=== PATIENT | female | born 1985 | race Two or more races ===

== ENCOUNTER 2023-03-17 19:13 | Emergency (ER) | payer OTHER ==
[~2023-03-17] VITALS: Ht 160 cm; Wt 108.9 kg
[2023-03-17] MEDS ORDERED: PRENA1 CHEW TA1.4 MG PO (20:16)
[2023-03-18] MEDS ORDERED: ZOFRAN8 MG PO (00:10)
[2023-03-18] MEDS ORDERED: PEPCID AC20 MG PO (00:10)
[2023-03-18] MEDS ORDERED: DUI500 PO (00:10)
== END 2023-03-18 00:22 | disposition home or self-care (01) ==
LOC: ER 19:13
DX: O23.41 Unspecified infection of urinary tract in pregnancy, first trimester (principal); Z3A.12 12 weeks gestation of pregnancy; N39.0 Urinary tract infection, site not specified; K52.89 Other specified noninfective gastroenteritis and colitis; Z91.013 Allergy to seafood; Z20.822 Contact with and (suspected) exposure to COVID-19

== ENCOUNTER 2023-03-20 17:45 | Emergency (ER) | payer OTHER ==
[~2023-03-20] VITALS: Ht 160 cm; Wt 107.5 kg
[~2023-03-20 17:45] MED LIST: DUI500 PO; PEPCID AC20 MG PO; PRENA1 CHEW TA1.4 MG PO; ZOFRAN8 MG PO
== END 2023-03-21 03:07 ==
LOC: ER 17:45
DX: O23.41 Unspecified infection of urinary tract in pregnancy, first trimester (principal); N39.0 Urinary tract infection, site not specified; R30.0 Dysuria; Z3A.12 12 weeks gestation of pregnancy; Z91.013 Allergy to seafood

== ENCOUNTER 2023-03-25 15:43 | Emergency (ER) | payer OTHER ==
[~2023-03-25] VITALS: Ht 160 cm; Wt 107.5 kg
== END 2023-03-26 10:12 | disposition home or self-care (01) ==
LOC: ER 15:43
DX: O99.891 Other specified diseases and conditions complicating pregnancy (principal); Z3A.12 12 weeks gestation of pregnancy; Z91.013 Allergy to seafood; Z20.822 Contact with and (suspected) exposure to COVID-19; K80.20 Calculus of gallbladder without cholecystitis without obstruction; N20.0 Calculus of kidney

== ENCOUNTER 2023-04-14 08:30 | Outpatient (CLI) | payer OTHER | END 2023-04-14 09:58 | disposition home or self-care (01) | LOC: PRENATAL 08:30 | PROVIDERS: ATTEND Obstetrics & Gynecology Maternal & Fetal Medicine | DX: O26.849 Uterine size-date discrepancy, unspecified trimester (principal); O09.529 Supervision of elderly multigravida, unspecified trimester; O34.219 Maternal care for unspecified type scar from previous cesarean delivery; O09.219 Supervision of pregnancy with history of pre-term labor, unspecified trimester; Z3A.15 15 weeks gestation of pregnancy ==

== ENCOUNTER 2023-07-18 08:57 | Outpatient (CLI) | payer OTHER | END 2023-07-18 09:02 | disposition home or self-care (01) | LOC: PRENATAL 08:57 | PROVIDERS: ATTEND Obstetrics & Gynecology Maternal & Fetal Medicine | DX: O26.849 Uterine size-date discrepancy, unspecified trimester (principal); O34.219 Maternal care for unspecified type scar from previous cesarean delivery; O99.210 Obesity complicating pregnancy, unspecified trimester; O09.529 Supervision of elderly multigravida, unspecified trimester; Z3A.29 29 weeks gestation of pregnancy ==

== ENCOUNTER 2023-08-26 13:43 | Outpatient (CLI) | payer OTHER | END 2023-08-26 13:45 | disposition home or self-care (01) | LOC: PRENATAL 13:43 | PROVIDERS: ATTEND Obstetrics & Gynecology Maternal & Fetal Medicine | DX: O26.849 Uterine size-date discrepancy, unspecified trimester (principal); O09.529 Supervision of elderly multigravida, unspecified trimester; O34.219 Maternal care for unspecified type scar from previous cesarean delivery; O09.219 Supervision of pregnancy with history of pre-term labor, unspecified trimester ==

== ENCOUNTER 2023-09-14 04:17 | Inpatient (IN) | payer OTHER ==
[~2023-09-14] VITALS: Ht 160 cm; Wt 113.4 kg
[2023-09-14] MEDS ORDERED: CHILDREN'S ASPI81 MG PO (04:25)
[2023-09-14] MEDS ORDERED: NEXIUM2.5 MG (04:26)
[2023-09-14 08:33] LABS: INR < 0.93; PARTIAL THROMBOPLASTIN TIME 24.9 SECONDS (22.0-34.0); PROTHROMBIN TIME 9.6 SECONDS (9.0-11.5)
[2023-09-14 08:46] LABS: URINE APPEARANCE Clear; URINE BILIRRUBIN Small (NEGATIVE); URINE BLOOD Negative; URINE COLOR Dark Yellow; URINE GLUCOSE Negative (NEGATIVE); URINE LEUKOCYTE Small; URINE NITRATE Negative; URINE PROTEIN Trace (NEGATIVE)
[2023-09-14 08:49] LABS: URINE EPITHELIAL CELLS 47.9 uL (0.0-38.8); URINE RBC 14.9 uL (0.0-20.8); URINE WBC 35.8 uL (0.0-23.2)
[2023-09-14 08:53] LABS: HEMATOCRIT 36.2 % (36.0-45.00); HEMOGLOBIN 12.4 g/dL (12.0-15.00); MEAN CELL VOLUME 88.5 fL (80.00-100.00); MEAN CORPUSCULAR HEMOGLOBIN 30.4 pg (27.00-32.0); MEAN CORPUSCULAR HGB CONC 34.4 g/dl (32.0-36.0); PLATELET COUNT 221 K/uL (150-450); RED BLOOD COUNT 4.09 M/uL (4.00-6.00); RED CELL DISTRIBUTION WIDTH 13.6 % (11.5-14.5)
== END 2023-09-15 15:25 | disposition home or self-care (01) | DRG 833 ==
LOC: LDR 04:17
PROVIDERS: Obstetrics & Gynecology; ADMIT Obstetrics & Gynecology; ATTEND Obstetrics & Gynecology
PROC: 4A1HXCZ Monitoring of Products of Conception, Cardiac Rate, External Approach (ICD-10-PCS; principal; 2023-09-14)
DX: O26.893 Other specified pregnancy related conditions, third trimester (principal); R10.13 Epigastric pain; Z3A.37 37 weeks gestation of pregnancy; Z20.822 Contact with and (suspected) exposure to COVID-19

== ENCOUNTER 2023-09-19 07:23 | Inpatient (IN) | payer OTHER ==
[~2023-09-19] VITALS: Ht 160 cm; Wt 3.2 kg
[~2023-09-19 07:23] MED LIST changes: +CHILDREN'S ASPI81 MG PO; +NEXIUM2.5 MG
[2023-09-19] MEDS ORDERED: ASA81 MG PO (07:55)
[2023-09-19 08:28] LABS: HEMATOCRIT 35.4 % (36.0-45.00); MEAN CELL VOLUME 86.6 fL (80.00-100.00); MEAN CORPUSCULAR HEMOGLOBIN 29.4 pg (27.00-32.0); MEAN CORPUSCULAR HGB CONC 33.9 g/dl (32.0-36.0); PH,URINE 5.5 (5.0-8.0); PLATELET COUNT 212 K/uL (150-450); RED BLOOD COUNT 4.09 M/uL (4.00-6.00); RED CELL DISTRIBUTION WIDTH 13.8 % (11.5-14.5); URINE APPEARANCE Turbid; URINE BILIRRUBIN Small (NEGATIVE); URINE BLOOD NHT; URINE COLOR Dark Yellow; URINE GLUCOSE Negative (NEGATIVE); URINE LEUKOCYTE Moderate; URINE NITRATE Negative; URINE PROTEIN 30 (NEGATIVE)
[2023-09-19 08:29] LABS: URINE EPITHELIAL CELLS 103.5 uL (0.0-38.8); URINE RBC 6.8 uL (0.0-20.8); URINE WBC 1692.4 uL (0.0-23.2)
[2023-09-19 08:44] LABS: URINE BACTERIA > 9821.5 uL (0.0-1933)
[2023-09-19 09:04] LABS: INR < 0.93; PARTIAL THROMBOPLASTIN TIME 25.6 SECONDS (22.0-34.0); PROTHROMBIN TIME 9.8 SECONDS (9.0-11.5)
[2023-09-19 09:08] LABS: ALBUMIN 2.7 gm/dL (3.4-5.0); BILIRUBIN TOTAL 0.5 mg/dL (0.3-1.2); CALCIUM 9.1 mg/dL (8.5-10.1); CREATININE SERUM 0.53 mg/dL (0.55-1.02); GFR 130.53; GLOBULINA 3.4 G/DL (2.4-3.5); TOTAL PROTEIN 6.1 gm/dL (6.4-8.2)
[2023-09-19 19:45] LABS: HEMATOCRIT 35.4 % (36.0-45.00); MEAN CELL VOLUME 87.1 fL (80.00-100.00); MEAN CORPUSCULAR HEMOGLOBIN 29.4 pg (27.00-32.0); MEAN CORPUSCULAR HGB CONC 33.7 g/dl (32.0-36.0); PLATELET COUNT 193 K/uL (150-450); RED BLOOD COUNT 4.07 M/uL (4.00-6.00); RED CELL DISTRIBUTION WIDTH 13.5 % (11.5-14.5)
[2023-09-19 22:43] LABS: ABG PH 7.229 (7.35-7.45); ABG pCO2 51.7 mmHg (35-45)
[2023-09-19 22:44] LABS: ABG PO2 25.4 mmHg (80-100); BASE EXCESS -6.8 mmol/l; BICARBONATE 21.1 mmol/l (23-25); Tco2 22.7 mmol/l; o2 21 %
[2023-09-19 22:48] LABS: SaO2 32.8 %
== END 2023-09-22 13:45 | disposition home or self-care (01) | DRG 785 ==
LOC: LDR 07:23 → O/R 13:33 → OB/GYN 15:21
PROVIDERS: ADMIT Obstetrics & Gynecology; ATTEND Obstetrics & Gynecology
PROC: 0UB70ZZ Excision of Bilateral Fallopian Tubes, Open Approach (ICD-10-PCS; 2023-09-19)
PROC: 4A1HXCZ Monitoring of Products of Conception, Cardiac Rate, External Approach (ICD-10-PCS; 2023-09-19)
PROC: 10D00Z1 Extraction of Products of Conception, Low, Open Approach (ICD-10-PCS; principal; 2023-09-19 13:15)
DX: O34.211 Maternal care for low transverse scar from previous cesarean delivery (principal); Z3A.38 38 weeks gestation of pregnancy; Z37.0 Single live birth; Z20.822 Contact with and (suspected) exposure to COVID-19; Z30.2 Encounter for sterilization

== ENCOUNTER 2023-12-05 20:16 | Emergency (ER) | payer OTHER ==
[~2023-12-05] VITALS: Ht 160 cm; Wt 104.3 kg
[~2023-12-05 20:16] MED LIST changes: +ASA81 MG PO
[2023-12-05] MEDS ORDERED: KETOROLAC TROMETHAMINE 30 MG VIAL IM STA (21:46)
== END 2023-12-05 23:28 | disposition home or self-care (01) ==
LOC: ER 20:16
DX: M25.571 Pain in right ankle and joints of right foot (principal); W18.39XA Other fall on same level, initial encounter; Y93.89 Activity, other specified; Y92.89 Other specified places as the place of occurrence of the external cause; Z91.013 Allergy to seafood

== ENCOUNTER 2024-08-28 17:51 | Emergency (ER) | payer OTHER ==
[~2024-08-28] VITALS: Ht 160 cm; Wt 117.0 kg
[2024-08-28] MEDS ORDERED: ACETAMINOPHEN 500 MG GEL..CAP PO ONE (18:11)
[2024-08-28 20:12] LABS: HEMATOCRIT 38.4 % (36.0-45.00); HEMOGLOBIN 13.1 g/dL (12.0-15.00); MEAN CELL VOLUME 86.6 fL (80.00-100.00); MEAN CORPUSCULAR HEMOGLOBIN 29.5 pg (27.00-32.0); PLATELET COUNT 190 K/uL (150-450); RED BLOOD COUNT 4.43 M/uL (4.00-6.00); RED CELL DISTRIBUTION WIDTH 13.4 % (11.5-14.5)
== END 2024-08-28 20:46 | disposition home or self-care (01) ==
LOC: ER 17:53
PROVIDERS: General Practice
DX: J11.1 Influenza due to unidentified influenza virus with other respiratory manifestations (principal); Z91.013 Allergy to seafood; Z20.822 Contact with and (suspected) exposure to COVID-19